=== PATIENT | male | born 1975 | race Caucasian/White ===

== ENCOUNTER 2020-11-15 16:16 | Inpatient (IN) | payer OTHER ==
[~2020-11-15] VITALS: Ht 182.9 cm; Wt 115.7 kg
[~2020-11-15 16:16] MED LIST: BENZONATATE100 MG PO; KEFLEX CAP 500500 MG PO; LEVOFLOXACIN500 MG PO; NORCO 7.5-3251 EACH PO; ONDANSETRON HCL8 MG PO; VITAMIN C 500500 MG PO; [UNRECOGNIZED DRUG - OTHER] PO
[2020-11-15 17:16] LABS: HEMOGLOBIN 15.1 gm/dl (14.0-17.5); RED BLOOD COUNT 4.92 M/UL (4.20-5.50); WHITE BLOOD COUNT 7.3 K/UL (4.5-11.0)
[2020-11-15 17:38] LABS: BUN/CREATININE RATIO 12 (0-10)
[2020-11-16 03:26] LABS: HEMOGLOBIN 13.9 gm/dl (14.0-17.5); RED BLOOD COUNT 4.49 M/UL (4.20-5.50); WHITE BLOOD COUNT 5.8 K/UL (4.5-11.0)
[2020-11-16] MEDS ORDERED: IBU-200200 MG PO (06:46)
[2020-11-16] MEDS ORDERED: ALBUTEROL2.5 MG/3 M NEB (11:21)
[2020-11-16] MEDS ORDERED: PROAIR DIGIHAL90 MCG INH (11:29)
[2020-11-16] MEDS ORDERED: MUCUS ER600 MG PO (11:30)
[2020-11-16] MEDS ORDERED: TYLENOL EXTRA500 MG PO (11:31)
[2020-11-17 03:50] LABS: BUN/CREATININE RATIO 22 (0-10)
[2020-11-18 03:49] LABS: HEMOGLOBIN 14.3 gm/dl (14.0-17.5); RED BLOOD COUNT 4.65 M/UL (4.20-5.50)
[2020-11-18 03:51] LABS: WHITE BLOOD COUNT 8.9 K/UL (4.5-11.0)
[2020-11-18 04:20] LABS: BUN/CREATININE RATIO 20 (0-10)
[2020-11-19 03:29] LABS: HEMOGLOBIN 13.9 gm/dl (14.0-17.5); RED BLOOD COUNT 4.49 M/UL (4.20-5.50)
[2020-11-19 03:30] LABS: WHITE BLOOD COUNT 12.1 K/UL (4.5-11.0)
[2020-11-19 03:59] LABS: BUN/CREATININE RATIO 24 (0-10)
[2020-11-20 02:30] LABS: HEMOGLOBIN 14.5 gm/dl (14.0-17.5); RED BLOOD COUNT 4.71 M/UL (4.20-5.50); WHITE BLOOD COUNT 10.7 K/UL (4.5-11.0)
[2020-11-20 02:48] LABS: BUN/CREATININE RATIO 25 (0-10)
[2020-11-21 03:58] LABS: HEMOGLOBIN 13.7 gm/dl (14.0-17.5); RED BLOOD COUNT 4.68 M/UL (4.20-5.50); WHITE BLOOD COUNT 11.1 K/UL (4.5-11.0)
[2020-11-21 04:26] LABS: BUN/CREATININE RATIO 24 (0-10)
[2020-11-22 04:05] LABS: HEMOGLOBIN 13.8 gm/dl (14.0-17.5); RED BLOOD COUNT 4.75 M/UL (4.20-5.50); WHITE BLOOD COUNT 12.7 K/UL (4.5-11.0)
[2020-11-22 04:28] LABS: BUN/CREATININE RATIO 28 (0-10)
[2020-11-23 03:32] LABS: HEMOGLOBIN 13.9 gm/dl (14.0-17.5); RED BLOOD COUNT 4.74 M/UL (4.20-5.50); WHITE BLOOD COUNT 15.8 K/UL (4.5-11.0)
[2020-11-23 03:43] LABS: BUN/CREATININE RATIO 31 (0-10)
[2020-11-24 03:42] LABS: HEMOGLOBIN 13.9 gm/dl (14.0-17.5); RED BLOOD COUNT 4.76 M/UL (4.20-5.50); WHITE BLOOD COUNT 15.1 K/UL (4.5-11.0)
[2020-11-24 04:07] LABS: BUN/CREATININE RATIO 30 (0-10)
[2020-11-26 03:23] LABS: HEMOGLOBIN 13.7 gm/dl (14.0-17.5); RED BLOOD COUNT 4.62 M/UL (4.20-5.50); WHITE BLOOD COUNT 15.2 K/UL (4.5-11.0)
[2020-11-27 02:58] LABS: HEMOGLOBIN 13.8 gm/dl (14.0-17.5); RED BLOOD COUNT 4.62 M/UL (4.20-5.50); WHITE BLOOD COUNT 17.7 K/UL (4.5-11.0)
[2020-11-27 03:11] LABS: BUN/CREATININE RATIO 28 (0-10)
[2020-12-01 10:38] LABS: HEMOGLOBIN 13.8 gm/dl (14.0-17.5); RED BLOOD COUNT 4.67 M/UL (4.20-5.50); WHITE BLOOD COUNT 17.6 K/UL (4.5-11.0)
[2020-12-01 11:16] LABS: BUN/CREATININE RATIO 24 (0-10)
[2020-12-02 04:00] LABS: HEMOGLOBIN 13.9 gm/dl (14.0-17.5); RED BLOOD COUNT 4.69 M/UL (4.20-5.50); WHITE BLOOD COUNT 13.8 K/UL (4.5-11.0)
[2020-12-02 04:15] LABS: BUN/CREATININE RATIO 29 (0-10)
[2020-12-03 03:19] LABS: HEMOGLOBIN 14.5 gm/dl (14.0-17.5); RED BLOOD COUNT 4.74 M/UL (4.20-5.50); WHITE BLOOD COUNT 14.1 K/UL (4.5-11.0)
[2020-12-03 03:59] LABS: BUN/CREATININE RATIO 25 (0-10)
[2020-12-04 03:53] LABS: HEMOGLOBIN 15.2 gm/dl (14.0-17.5); RED BLOOD COUNT 4.91 M/UL (4.20-5.50); WHITE BLOOD COUNT 13.1 K/UL (4.5-11.0)
[2020-12-04 04:16] LABS: BUN/CREATININE RATIO 26 (0-10)
[2020-12-05] MEDS ORDERED: ELIQUIS 2.5 MG2.5 MG PO (10:16)
[2020-12-05] MEDS ORDERED: AYR NASAL SPRAY50 ML (10:24)
--- NOTE | 2020-12-05 11:35 | NUR ---
PATIENTS ROOM AIR SATURATION IS 87%.
== END 2020-12-05 13:24 | disposition home or self-care (01) | DRG 177 ==
LOC: ER1 16:16 → CDU 17:57 → PROG CARE 17:57
PROVIDERS: Emergency Medicine; Internal Medicine; Physician Assistant Medical; ADMIT Internal Medicine
PROC: 8E0ZXY6 Isolation (ICD-10-PCS; principal; 2020-11-15)
PROC: XW033E5 Introduction of Remdesivir Anti-infective into Peripheral Vein, Percutaneous Approach, New Technology Group 5 (ICD-10-PCS; 2020-11-15)
PROC: 3E0333Z Introduction of Anti-inflammatory into Peripheral Vein, Percutaneous Approach (ICD-10-PCS; 2020-11-15)
PROC: XW0DXM6 Introduction of Baricitinib into Mouth and Pharynx, External Approach, New Technology Group 6 (ICD-10-PCS; 2020-11-15)
PROC: 5A09457 Assistance with Respiratory Ventilation, 24-96 Consecutive Hours, Continuous Positive Airway Pressure (ICD-10-PCS; 2020-11-15)
DX: U07.1 COVID-19 (principal); J12.82 Pneumonia due to coronavirus disease 2019; J15.9 Unspecified bacterial pneumonia; J80 Acute respiratory distress syndrome; J93.83 Other pneumothorax; J98.2 Interstitial emphysema; E66.9 Obesity, unspecified; R00.0 Tachycardia, unspecified; Z79.899 Other long term (current) drug therapy; Z98.890 Other specified postprocedural states; Z82.49 Family history of ischemic heart disease and other diseases of the circulatory system; Z88.8 Allergy status to other drugs, medicaments and biological substances; Z68.34 Body mass index [BMI] 34.0-34.9, adult
CPT/HCPCS: 36415; 36600; 71045; 71046; 80048; 80053; 82803; 83036; 83735; 85025; 85027; 85379; 87040; 93005; 94640; 94660; 94664; 94760; 96374; 97161; 99285; J0456; J0696; J1100; J1205; J1650; J7030

== ENCOUNTER → 2021-02-02 | Outpatient (CLI) | payer OTHER ==
[~2021-02-02] MED LIST changes: +ALBUTEROL2.5 MG/3 M NEB; +AYR NASAL SPRAY50 ML; +ELIQUIS 2.5 MG2.5 MG PO; +IBU-200200 MG PO; +MUCUS ER600 MG PO; +PROAIR DIGIHAL90 MCG INH; +TYLENOL EXTRA500 MG PO
== END ==
LOC: KOH-I 01-19 10:00
DX: J84.10 Pulmonary fibrosis, unspecified (principal); Z86.16 Personal history of COVID-19
CPT/HCPCS: 71250

== ENCOUNTER → 2021-02-04 | Outpatient (CLI) | payer OTHER | LOC: HEART 5 10:54 | DX: J84.10 Pulmonary fibrosis, unspecified (principal) | CPT/HCPCS: 94060; 94729 ==